=== PATIENT | male | born 1995 | race African-American/Black ===

== ENCOUNTER 2024-04-26 13:16 | Emergency (ER) | payer SELFPAY ==
[~2024-04-26] VITALS: Ht 175.3 cm; Wt 68.0 kg
[~2024-04-26 13:16] MED LIST: PRO-AIR INHALER
[2024-04-26 13:24] VITALS: BP 119/71; PULSE 61; RESP 15; TEMP 98.1; O2SAT 99
[2024-04-26] MEDS: KETOROLAC 30MG/ML VIAL IM ONE (14:45)
[2024-04-26] MEDS: LIDOCAINE 5% PATCH TOP SCH (14:45)
[2024-04-26] MEDS ORDERED: NAPR-679 MT (16:25)
[2024-04-26] MEDS ORDERED: LIDO700A15 TP (16:25)
== END 2024-04-26 16:29 | disposition home or self-care (01) ==
LOC: ER 13:16
DX: S20.212A Contusion of left front wall of thorax, initial encounter (principal); J45.909 Unspecified asthma, uncomplicated; F12.10 Cannabis abuse, uncomplicated; W18.39XA Other fall on same level, initial encounter; Y93.89 Activity, other specified; Y92.89 Other specified places as the place of occurrence of the external cause; Y99.8 Other external cause status
CPT/HCPCS: 99283; 71101; 93005; 96372; J1885